=== PATIENT | male | born 1950 | race Caucasian/White ===

== ENCOUNTER 2020-12-19 17:51 | Observation (INO) | payer MEDICARE, SELFPAY ==
[2020-12-19 18:02] VITALS: BP 151/84; PULSE 95; RESP 18; TEMP 36.7; O2SAT 97; BMI 25.1
--- NOTE | 2020-12-19 18:33 | W.ED.ABDPA2 ---
HPI - Abdominal Pain General: Chief Complaint: Abdominal Pain Stated Complaint: LLQ ABD PAIN Time Seen by Provider: 12/19/20 18:21 History of Present Illness: HPI narrative: The patient is a 70-year-old male with no significant past medical history who comes to the ER complaining of left lower quadrant pain starting earlier today. He said he had an episode that was similar about a week ago but it eased up and went away on its own however this episode is not getting better prompting him to visit the ED. He has not seen a primary doctor in 10 years. Takes no medications. He admits to feeling nauseous and having diarrhea. No blood in stool. MD elicited complaint: abdominal pain Pertinent past history: none Location: LLQ Quality: cramping and sharp Radiation: none Associated Symptoms: Reports diarrhea and nausea; Denies hematochezia and vomiting Review of Systems General: Reports: 10 or more systems reviewed and unremarkable except in HPI and below Const: Denies: fatigue Eyes: Denies: change in vision, blurry vision or eye redness ENMT: Denies: throat pain, swelling of lips/tongue, ear or mastoid pain or nasal congestion Card: Denies: chest pain, palpitations, irregular heart rhythm, edema, dyspnea on exertion or orthopnea Resp: Denies: dyspnea, productive cough or non-productive cough GI: Reports: nausea and diarrhea; Denies: vomiting or hematochezia : Denies: flank pain, urinary frequency or urinary urgency Musc: Denies: neck pain, back pain, extremity pain, joint pain, joint redness, limited range of motion or muscle weakness Skin/Breast: Denies: rash, pruritus, erythema, skin pain or skin tenderness Neuro: Denies: headache(s), numbness in extremities, weakness in extremities, sensory changes, difficulty walking, dizziness, confusion or Slurred speech present Psych: Denies: anxiety or depression Endo: Denies: polyuria All/Imm: Denies: urticaria, throat swelling or tongue swelling Physical Exam Const: COMMON NORMALS: no acute distress, average body habitus, patient oriented x3, no limitations, healthy appearing, alert and well nourished GENERAL APPEARANCE: cooperative, comfortable, well kempt and well developed ORIENTATION/CONSCIOUSNESS: Yes awake, Yes oriented to person, Yes oriented to place and Yes oriented to time HENMT: COMMON NORMALS: normocephalic, external ears normal and Normal external nose present HEAD & SCALP: normal to inspection and normocephalic NOSE: Normal external nose present EXTERNAL EAR: Yes external ears normal MOUTH: Normal oral and palatal mucosa present THROAT: posterior oropharynx normal Eye: COMMON NORMALS: Equal, round and reactive pupils present and EOMs intact bilaterally GENERAL EYE: appearance normal, both eyes and all related structures PUPIL: Yes Equal, round and reactive pupils present Neck/C-Spine: COMMON NORMALS: full ROM, no lymphadenopathy, no meningeal signs and no JVD GENERAL: Yes normal visual inspection Lymph: LYMPHATIC: no lymphadenopathy noted Chest: COMMONS NORMALS: normal inspection of the chest and normal palpation of entire chest wall Resp: COMMON NORMALS: normal respiratory effort, No retractions, No use of accessory muscles, clear to auscultation bilaterally and percussion normal EFFORT & INSPECTION: Yes able to speak in complete sentences AUSCULTATION: clear to auscultation bilaterally PERCUSSION: percussion normal Cardio: COMMON NORMALS: no JVD, regular rate, regular rhythm, S1 normal heart sound present, S2 normal heart sound present and Peripheral pulses 2+ throughout RATE: regular rate RHYTHM: regular rhythm HEART SOUNDS: S1 normal heart sound present and S2 normal heart sound present PERIPHERAL PULSES: Peripheral pulses 2+ throughout GI: COMMON NORMALS: Normal to inspection, nondistended, normoactive bowel sounds present, Soft to palpation, non-tender and no masses INSPECTION: Yes normal to inspection PALPATION: Yes Soft to palpation OTHER: Mild left abdominal tenderness and left lower quadrant abdominal tenderness. No rebound tenderness. Belly soft. Bowel sounds normal. : COMMON NORMALS: Yes no CVA tenderness BLADDER/KIDNEY EXAM: Yes no CVA tenderness Back/Pelvis: COMMON NORMALS: no CVA tenderness, thoracic and lumbar spine normal to inspection, no thoracic nor lumbar tenderness and thoraco-lumbar ROM normal Extremity: COMMON NORMALS: normal to inspection, full ROM, capillary refill normal, no joint enlargement and no pedal edema GENERAL: Yes normal exam except as noted Neuro: COMMON NORMALS: patient oriented x3, CN's II-XII intact bilaterally, moves all extremities, no focal motor deficits, no sensory deficits noted and gait normal SENSORIUM/ORIENTATION: Yes alert, Yes oriented to person, Yes oriented to place and Yes oriented to time MENINGEAL SIGNS: Yes no meningeal signs Psych: COMMON NORMALS: mental status grossly normal, Normal thought process present, cooperative, normal affect and speech normal APPEARANCE: Yes well kempt ATTITUDE: Yes calm SPEECH: Yes normal speech THOUGHT PROCESS: Normal thought process present Skin: COMMON NORMALS: no rashes or lesions noted GENERAL SKIN EXAM: no rashes or lesions noted Course Vital Signs: Vital signs: Vital Signs Temperature 98.1 F 12/19/20 18:02 Pulse Rate 79 12/19/20 20:48 Respiratory Rate 18 12/19/20 20:48 Blood Pressure 143/70 12/19/20 20:48 Pulse Oximetry 98 12/19/20 20:48 MDM - Abdominal Pain MDM Narrative: Medical decision making narrative: The patient has a 6 mm proximal ureter stone which is likely causing his symptoms. He also says when he eats he has severe abdominal pain and he has not eaten since 7 AM this morning. The CT also shows a likely small bowel obstruction which could also be causing his abdominal pain. He will be kept observation for further monitoring of these conditions. Discussed with Dr. Villalpando who accepts for observation. Lab Data: Labs: Lab Results 12/19/20 12/19/20 12/19/20 Range/Units 18:49 18:49 18:49 WBC 8.2 (4.0-10.0) 10^3/ uL RBC 4.57 (4.1-5.3) 10^6/u L Hgb 14.1 (11.7-16.6) g/dL Hct 41.8 L (42.0-52.0) % MCV 91.5 (80-94) fL MCH 30.9 (28.0-34.0) pg MCHC 33.7 (30.0-36.0) g/dL RDW 11.9 L (12.1-15.1) % Plt Count 242 (130-400) 10^3/c mm MPV 10.1 (7.4-10.4) fL Neut % (Auto) 74.6 % Lymph % (Auto) 16.9 % [place] % (Auto) 6.9 % Eos % (Auto) 1.0 % Baso % (Auto) 0.4 % Neut # (Auto) 6.09 (1.8-7.7) 10^3/u L Lymph # (Auto) 1.4 (0.8-4.8) 10^3/u L [place] # (Auto) 0.6 (0.2-0.9) 10^3/u L Eos # (Auto) 0.1 (0.0-0.8) 10^3/u L Baso # (Auto) 0.0 (0.0-0.1) 10^3/u L Nucleated RBC % (a uto) 0 % Nucleated RBCs # 0.0 /100WBC Sodium 139 (136-145) mmol/L Potassium 4.0 (3.5-5.1) mmol/L Chloride 103 (98-107) mmol/L Carbon Dioxide 25 (22-29) mmol/L Anion Gap 15.0 (5-19) BUN 18 (8-23) mg/dL Creatinine 1.9 H (0.7-1.2) mg/dL GFR Calculation 35.2 L (90-130) mL/min Glucose 97 (65-115) mg/dL Calculated Osmolal ity 290 (285-295) mOsm/k g Lactate 1.0 (0.5-2.2) mmol/L Calcium 8.7 (8.5-10.5) mg/dL Total Bilirubin 0.6 (0.15-1.2) mg/dL AST 17 (0-40) U/L ALT 20 (0-41) U/L Alkaline Phosphata se 73 (40-130) IU/L Total Protein 7.8 (6.6-8.7) g/dL Albumin 3.9 (3.5-5.2) g/dL Globulin 3.9 (1.3-4.6) g/dL Lipase 20 (13-60) U/L Urine Color (Yellow) Urine Appearance (CLEAR) Urine pH (5-7) Ur Specific Gravit y (1.005-1.030) Urine Protein (Negative) Urine Glucose (UA) (Normal) Urine Ketones (Negative) Urine Blood (Negative) Urine Nitrate (Negative) Urine Bilirubin (Negative) Urine Urobilinogen (Negative) mg/dL Ur Leukocyte Ivory ase (Negative) Urine RBC (0-2) /hpf Urine WBC (0-5) /hpf Ur Squamous Epith Cells (0-5) /hpf Amorphous Sediment Urine Bacteria (NONE) /hpf Urine Mucus /hpf 12/19/ Range/Units 19:03 WBC (4.0-10.0) 10^3/ uL RBC (4.1-5.3) 10^6/u L Hgb (11.7-16.6) g/dL Hct (42.0-52.0) % MCV (80-94) fL MCH (28.0-34.0) pg MCHC (30.0-36.0) g/dL RDW (12.1-15.1) % Plt Count (130-400) 10^3/c mm MPV (7.4-10.4) fL Neut % (Auto) % Lymph % (Auto) % [place] % (Auto) % Eos % (Auto) % Baso % (Auto) % Neut # (Auto) (1.8-7.7) 10^3/u L Lymph # (Auto) (0.8-4.8) 10^3/u L [place] # (Auto) (0.2-0.9) 10^3/u L Eos # (Auto) (0.0-0.8) 10^3/u L Baso # (Auto) (0.0-0.1) 10^3/u L Nucleated RBC % (a uto) % Nucleated RBCs # /100WBC Sodium (136-145) mmol/L Potassium (3.5-5.1) mmol/L Chloride (98-107) mmol/L Carbon Dioxide (22-29) mmol/L Anion Gap (5-19) BUN (8-23) mg/dL Creatinine (0.7-1.2) mg/dL GFR Calculation (90-130) mL/min Glucose (65-115) mg/dL Calculated Osmolal ity (285-295) mOsm/k g Lactate (0.5-2.2) mmol/L Calcium (8.5-10.5) mg/dL Total Bilirubin (0.15-1.2) mg/dL AST (0-40) U/L ALT (0-41) U/L Alkaline Phosphata se (40-130) IU/L Total Protein (6.6-8.7) g/dL Albumin (3.5-5.2) g/dL Globulin (1.3-4.6) g/dL Lipase (13-60) U/L Urine Color Yellow (Yellow) Urine Appearance Clear (CLEAR) Urine pH 5 (5-7) Ur Specific Gravit y 1.015 (1.005-1.030) Urine Protein Neg (Negative) Urine Glucose (UA) Norm (Normal) Urine Ketones 1+ H (Negative) Urine Blood 3+ H (Negative) Urine Nitrate Negative (Negative) Urine Bilirubin Neg (Negative) Urine Urobilinogen Norm (Negative) mg/dL Ur Leukocyte Iv[place] ase Negative (Negative) Urine RBC 25-40 H (0-2) /hpf Urine WBC Rare (0-5) /hpf Ur Squamous Epith Cells None (0-5) /hpf Amorphous Sediment Not Reportable Urine Bacteria Trace (NONE) /hpf Urine Mucus 1+ /hpf Discharge Plan Discharge Patient Disposition: Placed in Observation Clinical Impression: Small bowel obstruction, Ureterolithiasis Coding Level of Care Code ED Co Founder And Chairman for Chg Fwd Exam Comprehensive
[2020-12-19] MEDS: ondansetron 2 mg/ML SDV 2 mL 4 MG IVP (18:47)
[2020-12-19] MEDS: sodium chloride 0.9% 1,000 ML 999 ML IV (18:48)
[2020-12-19 19:05] LABS: Basophils % 0.4 %; Eosinophils # 0.1 10^3/uL (0.0-0.8); Hematocrit 41.8 % (42.0-52.0); Hemoglobin 14.1 g/dL (11.7-16.6); Lymphocytes # 1.4 10^3/uL (0.8-4.8); Lymphocytes % 16.9 %; Mean Corpuscular HGB Conc 33.7 g/dL (30.0-36.0); Mean Corpuscular Hemoglobin 30.9 pg (28.0-34.0); Mean Corpuscular Volume 91.5 fL (80-94); Mean Platelet Volume 10.1 fL (7.4-10.4); Monocytes # 0.6 10^3/uL (0.2-0.9); Monocytes % 6.9 %; Neutrophils # 6.09 10^3/uL (1.8-7.7); Neutrophils % 74.6 %; Nucleated Red Blood Cells % 0 %; Platelet Count 242 10^3/cmm (130-400); Red Blood Count 4.57 10^6/uL (4.1-5.3); Red Cell Distribution Width 11.9 % (12.1-15.1); White Blood Count 8.2 10^3/uL (4.0-10.0)
[2020-12-19 19:12] LABS: Add Urine Microscopic? YES; Bilirubin Urine Neg (Negative); Blood Urine 3+ (Negative); Glucose Urine UA Norm (Normal); Ketones Urine 1+ (Negative); Leukocyte Esterase Urine Negative (Negative); Nitrate Urine Negative (Negative); Protein Urine Neg (Negative); Specific Gravity, Urine 1.015 (1.005-1.030); Urine Appearance Clear (CLEAR); Urine Color Yellow (Yellow); Urobilinogen Urine Norm (Negative); pH Urine 5 (5-7)
[2020-12-19 19:15] LABS: Bacteria Urine TRACE /hpf; Mucus Urine 1+ /hpf; RBC Urine 25-40 /hpf (0-2); WBC Urine RARE /hpf (0-5)
[2020-12-19 19:16] LABS: Add Urine Culture? Yes
[2020-12-19 19:31] LABS: Alanine Aminotransferase 20 U/L (0-41); Albumin Level 3.9 g/dL (3.5-5.2); Alkaline Phosphatase 73 IU/L (40-130); Aspartate Amino Transferase 17 U/L (0-40); Blood Urea Nitrogen 18 mg/dL (8-23); Calcium 8.7 mg/dL (8.5-10.5); Carbon Dioxide 25 mmol/L (22-29); Chloride 103 mmol/L (98-107); Globulin 3.9 g/dL (1.3-4.6); Glomerular Filtration Rate 35.2 mL/min (90-130); Glucose 97 mg/dL (65-115); Lipase 20 U/L (13-60); Osmolality Calculated 290 mOsm/kg (285-295); Sodium 139 mmol/L (136-145); Total Bilirubin 0.6 mg/dL (0.15-1.2); Total Protein 7.8 g/dL (6.6-8.7)
--- NOTE | 2020-12-19 19:56 | CTR_ITS ---
PROCEDURE INFORMATION: Exam: CT Abdomen And Pelvis With Contrast Exam date and time: 12/19/2020 8:22 PM Age: 70 years old Clinical indication: Abdominal pain; Localized; Left lower quadrant (llq); Patient HX: Llq abd pain w micro hematuria; Additional info: Llq abdominal pain/diarrhea. Microscopic hematuria TECHNIQUE: Imaging protocol: Computed tomography of the abdomen and pelvis with contrast. Radiation optimization: All CT scans at this facility use at least one of these dose optimization techniques: automated exposure control; mA and/or kV adjustment per patient size (includes targeted exams where dose is matched to clinical indication); or iterative reconstruction. Contrast material: VISI 320; Contrast volume: 95 ml; Contrast route: INTRAVENOUS (IV); COMPARISON: No relevant prior studies available. RADIATION DOSE METRICS: Total DLP (mGy-cm): 1479.83 FINDINGS: Lungs: Mild atelectasis versus fibrosis noted at the lung bases. Liver: Multiple water density liver lesions measuring up to 1.5 cm in diameter, likely representing simple cysts. No acute hepatic abnormality. Gallbladder and bile ducts: No calcified gallstones in the gallbladder. No gallbladder wall thickening. No pericholecystic fluid. No biliary dilatation. Pancreas: The pancreas is normal in appearance. No pancreatic duct dilatation. Spleen: The spleen is normal in size and appearance. Adrenal glands: The adrenal glands appear within normal limits. Kidneys and ureters: Mild left hydroureteronephrosis. Delayed excretion of contrast from the left kidney. There are 2 adjacent 3 mm obstructing calculi in the proximal left ureter. The distal left ureter is unremarkable. Findings are consistent with left obstructive uropathy. Simple appearing renal cysts measuring up to 2.5 cm. Stomach and bowel: No acute gastric abnormality demonstrated. There are mildly dilated loops of small bowel seen in the lower pelvis measuring up to 2.5 cm in diameter. The distal small bowel has an empty, decompressed appearance. This is suspicious for early or partial small bowel obstruction. Appendix: No evidence of appendicitis. Intraperitoneal space: No pneumoperitoneum. No significant fluid collection. Vasculature: Minimal atherosclerosis of the distal aorta and proximal common iliac arteries. No aneurysm. Lymph nodes: Shotty aortocaval lymph nodes are noted. No pathologically enlarged lymph nodes are demonstrated. Urinary bladder: Unremarkable as visualized. Reproductive: Mild enlargement of the prostate gland. Bones/joints: Advanced degenerative disc changes are noted throughout the lumbar spine. No acute osseous abnormality. Soft tissues: The abdominal wall demonstrates a 3.5 cm umbilical hernia, containing only fat. CT/CT abdomen pelvis w con* [id number] IMPRESSION: 1. Mild left hydroureteronephrosis. Delayed excretion of contrast from the left kidney. There are 2 adjacent 3 mm obstructing calculi in the proximal left ureter. The distal left ureter is unremarkable. Findings are consistent with left obstructive uropathy. 2. There are mildly dilated loops of small bowel seen in the lower pelvis measuring up to 2.5 cm in diameter. The distal small bowel has an empty, decompressed appearance. This is suspicious for early or partial small bowel obstruction. 3. The abdominal wall demonstrates a 3.5 cm umbilical hernia, containing only fat. 4. Mild enlargement of the prostate gland. COMMENTS: Consistent with the [employer]'s Incidental Findings Committee white paper (J Am Lauren Radiol 2018): Any incidental renal lesion less than 1 cm or classified as too small to characterize, or any incidental cystic renal lesion characterized as simple-appearing, is likely benign. No follow-up imaging is recommended for these lesions per consensus recommendations based on imaging criteria. Radiation Dose CTDIVOL = (mGy): DLP = 1479.83 (mGy-cm)
[2020-12-19] MEDS: iodixanol 320 mg/mL 100mL Btl IV (20:28)
[2020-12-19 20:48] VITALS: BP 143/70; PULSE 79; RESP 18; O2SAT 98
--- NOTE | 2020-12-19 23:29 | PM.HP ---
Providers/Chief Complaint Primary Care Provider: Jd Loera Jr, MD Chief Complaint: LLQ ABD PAIN History of Present Illness Francisco J Morgan is a 70 year old male who does not have significant past medical or surgical history presented today with chief complaint of left lower quadrant pain. Patient is stating that for last 7 to 8 days he has been experiencing epigastric and hypogastric region pain which would radiate to left lower quadrant especially after eating. Whenever he tries to eat he gets midepigastric discomfort which would last for 4 to 6 hours, if he eats 3 times a day his pain would last all day, he did not sprints any nausea or vomiting, on Monday he was feeling bloated and constipated he took a lot of laxatives and experienced loose stool today, he is denying fever, recent use of antibiotics, history of cancer, diabetes, stroke, CVA, ND or CHF. He has never smoked in his life, does not drink alcohol, he has never undergone screening colonoscopies, denies family history of GI/colon cancers. He is able to pass flatus, his pain is not severe as it was 7 days ago. Diagnosis in the ER revealed left hydroureteronephrosis, 2 obstructing calculi in proximal left ureter with no distal left ureter pathology, 2.5 cm dilated loops of small bowel with distal decompression suspicion for early/partial small bowel obstruction, umbilical hernia and BPH, Review of Systems Const: Reports: change in appetite, fatigue and malaise; Denies: fever(s), chills or body aches Eyes: Denies: change in vision ENMT: Denies: throat pain Card: Denies: chest pain Resp: Denies: dyspnea GI: Reports: abdominal pain, diarrhea and bloating; Denies: nausea or vomiting : Reports: flank pain Musc: Denies: neck pain Skin/Breast: Denies: rash Neuro: Denies: headache(s) Psych: Denies: anxiety Endo: Denies: polyuria Cj/Lymph: Denies: easy bruising All/Imm: Denies: urticaria Medications/Allergies Allergies Allergy/AdvReac Type Severity Reaction Status Date / Time No Known Allergies Allergy Verified 12/10/20 14:59 PFSH Acute PFSH: Medical History (Updated 12/19/20 @ 23:43 by Jade Villalpando MD) BPH (benign prostatic hyperplasia) Hypertension Surgical History (Updated 12/19/20 @ 23:30 by Jade Villalpando MD) Status post tonsillectomy Family History (Updated 12/19/20 @ 23:35 by Jade Villalpando MD) Denies family history of Diabetes CAD (coronary artery disease) Chronic kidney disease (CKD) Cancer Social History (Updated 12/19/20 @ 23:35 by Jade Villalpando MD) Smoking and tobacco status: never smoked Alcohol intake: never Substance/Drug Use: never Lives independently: Yes Housing: House Vitals/I&O/Wt Last Vital Signs Temp 98.1 F 12/19/20 18:02 Pulse 79 12/19/20 20:48 Resp 18 12/19/20 20:48 BP 143/70 12/19/20 20:48 Pulse Ox 98 12/19/20 20:48 Weight last 48 hrs Weight 81.647 kg Physical Exam Narrative: EXAM NARRATIVE: Very pleasant cooperative male was sitting comfortably in his bed when I entered the room Daughter was at the bedside Normal hemodynamics S1, S2 no murmur appreciated Bilateral breath sounds without adventitious rhonchi or crackles EOMI, PERRLA No neurological deficits Lower extremity no edema gangrene ulcer Abdomen soft, bloated, central obesity mild tenderness on deep palpation left lower quadrant area otherwise no signs of guarding rigidity or peritonitis Appropriate mood and affect No joint swelling or skin changes for cellulitis Data : 12/19/20 18:49 12/19/20 18:49 A&P Assessment and plan (1) Small bowel obstruction: Status: Acute (2) Ureterolithiasis: Status: Acute (3) CONCEPCIÓN (acute kidney injury): Status: Acute (4) Simple hepatic cyst: Status: Acute (5) Hematuria: Status: Acute Additional A&P Information Partial small bowel obstruction Patient had 1 episode of loose stool today after getting laxatives at home Is endorsing passing flatus Abdominal pain is not as severe as it was 7 days ago, I will give him mag citrate x1 and keep him on clear liquid diet and monitor overnight for any worsening of symptoms He will need outpatient colonoscopy in next few weeks, denying previous history of GI surgery, cancers, family history of GI/colon cancer Stomach is decompressed no need of nasogastric tube placement Patient denies previous history of peripheral vascular disease ND or CHF, postprandial pain could be a chronic mesenteric ischemic equivalent, he will need EGD and colonoscopy outpatient if that is negative he might benefit from a CTA abdomen pelvis Ureterolithiasis 2 adjacent 3 mm obstructing calculi, dimensions of stone do appear larger and then the report No active signs of pyelonephritis or UTI no signs of sepsis He will follow up with Dr. Beltre outpatient, no acute intervention needed as per ER physician discussion with Dr. Beltre I will start him on tamsulosin for BPH, bladder scan as needed Incidental finding of hepatic cysts, No biliary dilation: Normal liver enzymes, outpatient follow-up with PCP CONCEPCIÓN: No previous creatinine to compare Patient has not been eating much to prevent postprandial pain, clinically looks mildly dehydrated, would encourage p.o. fluids instead of IV at this point Monitor BMP Avoid nephrotoxic agent for hypertension we will add amlodipine Hypertension: Added amlodipine Umbilical hernia without strangulation or incarceration, Full code Full liquid diet DVT prophylaxis Heparin Attestations Medical Necessity Statement*: Anticipating discharge in less than 48 hours continued overnight monitoring for partial small obstruction left lower quadrant pain and urolithiasis, he also has CONCEPCIÓN Time Spent in Patient Care: (>than 50% of time spent in counselling and/or direct pt care on unit). 40mins Coding Level of Care Code Acute Junior Software Developer for Chg Fwd Diagnoses Small bowel obstruction K56.609 Ureterolithiasis N20.1 CONCEPCIÓN (acute kidney injury) N17.9 Simple hepatic cyst K76.89 Hematuria R31.9
[2020-12-20] VITALS: BP 149/82; PULSE 83; RESP 17; TEMP 36.6; O2SAT 97
[2020-12-20] MEDS: magnesium citrate Btl 296 mL 150 ML PO (00:20)
[2020-12-20] MEDS: heparin 5,000 unit/mL INJ 1 mL 5000 UNIT SUBCUT ×2 (00:26→10:18)
[2020-12-20 03:55] VITALS: BP 134/68; PULSE 58; RESP 17; TEMP 36.9; O2SAT 97
[2020-12-20 07:24] VITALS: BP 146/68; PULSE 60; RESP 17; TEMP 37; O2SAT 95
[2020-12-20 07:26] LABS: Anion Gap 11.7 (5-19); Blood Urea Nitrogen 16 mg/dL (8-23); Carbon Dioxide 26 mmol/L (22-29); Chloride 107 mmol/L (98-107); Glomerular Filtration Rate 42.9 mL/min (90-130); Glucose 95 mg/dL (65-115); Osmolality Calculated 291 mOsm/kg (285-295); Potassium 4.7 mmol/L (3.5-5.1); Sodium 140 mmol/L (136-145)
[2020-12-20] MEDS: sennosides-docusate Tablet 1 TAB PO (10:17)
[2020-12-20] MEDS: amlodipine 10 mg Tablet PO (10:17)
[2020-12-20] MEDS: tamsulosin 0.4 mg Capsule PO (10:18)
--- NOTE | 2020-12-20 10:39 | P.DS_ITS ---
Discharge Providers Date of Admission: 12/19/20 22:48 Date of Discharge: December 20, 2020 Attending Provider at Admission: Jade Villalpando MD Attending Provider at Discharge: Reyes Barr Primary Care Provider: Jd Loera Jr, MD Diagnoses at Discharge Discharge Diagnosis (1) Small bowel obstruction: Status: Acute (2) Ureterolithiasis: Status: Acute (3) CONCEPCIÓN (acute kidney injury): Status: Acute (4) Simple hepatic cyst: Status: Acute (5) Hematuria: Status: Acute Reason for Visit Reason for Visit: LLQ ABD PAIN Hospital Course Hospital Course Discharge diagnosis and problem list Small bowel obstruction. Clinically he is improving. He has been on full liquid diet and is tolerating it well. No nausea or vomiting. No abdominal pain. Had a bowel movement. No blood in the stool. The patient is eager to go home. He does not want to remain in the hospital. He states that he can do gradual advancement of his diet at home. He is instructed to come back to emergency room if he develops any worsening or new symptoms. He was also given a referral to follow-up with Dr. He for outpatient evaluation of small bowel obstruction, hernia, liver cyst. He might need also colonoscopy for regular health maintenance. Urolithiasis. His kidney function is improving. Again he does not want to remain in the hospital for monitoring. Referral is provided to see Dr. Beltre after discharge. Acute kidney injury. Could be acute on chronic. Could be due to mild urinary obstruction/obstructive uropathy. Currently improving creatinine. Outpatient monitoring of the renal function is needed. Prescription for repeat BMP is provided. He will need to follow-up with his primary care physician and with Dr. Beltre. He verbalized understanding and agreement. Hepatic cyst. Outpatient follow-up and monitoring. Discussed with the patient. He verbalized understanding and agreement. Hypertension. Started on amlodipine. His medications might need to be adjusted by the primary care team depending on his vital signs after discharge. Physical Exam Narrative: EXAM NARRATIVE: The patient is awake alert oriented. No acute distress. Mood and affect are appropriate. Responses are adequate. Skin is warm and dry. Moist mucous membranes Neck supple. No JVD Lungs clear to auscultation bilaterally Heart S1, S2, regular Abdomen soft, nontender, bowel sounds are present. No CVA tenderness bilaterally Extremities no edema cyanosis or calf tenderness bilaterally Discharge Data Data Completed and Pending: Completed Studies During Hospitalization Category Date Time Status CT abdomen pelvis w con* [id number] Stat Cat Scan 12/19/20 19:56 Completed Pending at discharge Category Date Time Status XR abdomen 1V* [id number] Routine Exams 12/21/20 06:00 Ordered Complete Blood Co unt w/Auto AM LABS Lab 12/21/20 04:00 Ordered Magnesium AM LABS Lab 12/21/20 04:00 Ordered Renal Function Pa lalito AM LABS Lab 12/21/20 04:00 Ordered Urine Culture Sta t Lab 12/19/20 19:03 Received Labs from last 24 hours 12/20/20 12/19/20 12/19/20 06:45 19:03 18:49 WBC RBC Hgb Hct MCV MCH MCHC RDW Plt Count MPV Neut % (Auto) Lymph % (Auto) Martin % (Auto) Eos % (Auto) Baso % (Auto) Neut # (Auto) Lymph # (Auto) Martin # (Auto) Eos # (Auto) Baso # (Auto) Nucleated RBC % (a uto) Nucleated RBCs # Sodium 140 Potassium 4.7 Chloride 107 Carbon Dioxide 26 Anion Gap 11.7 BUN 16 Creatinine 1.6 H GFR Calculation 42.9 L Glucose 95 Calculated Osmolal ity 291 Lactate 1.0 Calcium 9.0 Total Bilirubin AST ALT Alkaline Phosphata se Total Protein Albumin Globulin Lipase Urine Color Yellow Urine Appearance Clear Urine pH 5 Ur Specific Gravit y 1.015 Urine Protein Neg Urine Glucose (UA) Norm Urine Ketones 1+ H Urine Blood 3+ H Urine Nitrate Negative Urine Bilirubin Neg Urine Urobilinogen Norm Ur Leukocyte Ivory ase Negative Urine RBC 25-40 H Urine WBC Rare Ur Squamous Epith Cells None Amorphous Sediment Not Reportable Urine Bacteria Trace Urine Mucus 1+ 12/19/20 12/19/20 18:49 18:49 WBC 8.2 RBC 4.57 Hgb 14.1 Hct 41.8 L MCV 91.5 MCH 30.9 MCHC 33.7 RDW 11.9 L Plt Count 242 MPV 10.1 Neut % (Auto) 74.6 Lymph % (Auto) 16.9 Martin % (Auto) 6.9 Eos % (Auto) 1.0 Baso % (Auto) 0.4 Neut # (Auto) 6.09 Lymph # (Auto) 1.4 Martin # (Auto) 0.6 Eos # (Auto) 0.1 Baso # (Auto) 0.0 Nucleated RBC % (a uto) 0 Nucleated RBCs # 0.0 Sodium 139 Potassium 4.0 Chloride 103 Carbon Dioxide 25 Anion Gap 15.0 BUN 18 Creatinine 1.9 H GFR Calculation 35.2 L Glucose 97 Calculated Osmolal ity 290 Lactate Calcium 8.7 Total Bilirubin 0.6 AST 17 ALT 20 Alkaline Phosphata se 73 Total Protein 7.8 Albumin 3.9 Globulin 3.9 Lipase 20 Urine Color Urine Appearance Urine pH Ur Specific Gravit y Urine Protein Urine Glucose (UA) Urine Ketones Urine Blood Urine Nitrate Urine Bilirubin Urine Urobilinogen Ur Leukocyte Ivory ase Urine RBC Urine WBC Ur Squamous Epith Cells Amorphous Sediment Urine Bacteria Urine Mucus Vitals: Last Vital Signs Temp 98.6 F 12/20/20 07:24 Pulse 60 12/20/20 07:24 Resp 17 12/20/20 07:24 BP 146/68 12/20/20 07:24 Pulse Ox 95 12/20/20 07:24 Discharge Plan Discharge Patient Disposition: Home Condition: Stable Prescriptions: New Stool Softener-Laxative 8.6-50 mg Tablet 1 tab PO DAILY Qty: 30 RF: 0 tamsulosin 0.4 mg Capsule 0.4 mg PO DAILY Qty: 30 RF: 0 amlodipine 10 mg Tablet 10 mg PO DAILY Qty: 30 RF: 0 Discharge Orders: Discharge Order (Routine); Ordered 12/20/20 Ordered By: Reyes Barr Other Ambulatory Orders: Basic Metabolic Panel (Routine) Timeframe: 1 Week Facility: [facility] - Location: Lab - Main Lab Ordered By: Reyes Barr Referrals: Rolf Beltre MD [Physician] - 1-3 days (Please call the office first thing Monday morning at [phone] to schedule an appointment for 1 to 3 days.) Orion He MD [Physician] - 1 week (Please call the ofice first thing Monday morning at [phone] to schedule an appointment in 1 week.) Jd Loera Jr, MD [Primary Care Provider] - 4-7 days (Please call the office first thing Monday morning at [phone] to schedule an appointment in 4 to 7 days.) Discharge Diet: Advance as tolerated Discharge Activity: Resume usual activity Patient Instructions: Laxative, Stool Softeners (By mouth), Amlodipine (By mouth), Tamsulosin (By mouth), Acute Kidney Injury (DC), Kidney Stones (DC), Bowel Obstruction (DC) Activity Restrictions/Additional Instructions: Please come back to emergency room if you develop any increasing abdominal pain, back pain, abdominal distention, fever or chills, nausea or vomiting, diarrhea or constipation, difficulties with urination, blood in the urine, confusion, dizziness or lightheadedness, headache, or any other new complaints. Discharge Attestations Time Spent in Discharge Care*: less than 30 min Quality Metrics Clinical Quality Measures During this hospital stay, did patient experience: None Coding Level of Care Code Acute Chg FW DC note Diagnoses Small bowel obstruction K56.609 Ureterolithiasis N20.1 CONCEPCIÓN (acute kidney injury) N17.9 Simple hepatic cyst K76.89 Hematuria R31.9
[2020-12-20 11:21] VITALS: BP 133/76; PULSE 73; RESP 17; TEMP 36.6; O2SAT 98
--- NOTE | 2020-12-20 12:58 | PC.NURSE ---
at 1200 patient given discharge instructions and verbalized understanding of instructions. patient walked to private vehicle.
[2020-12-20 12:59] VITALS: BP 133/76; PULSE 73; RESP 17; TEMP 36.6; O2SAT 98
== END 2020-12-20 13:00 | disposition home or self-care (01) ==
LOC: ER 23:13 → MEDSURG 23:30
PROVIDERS: Admitting Provider Internal Medicine; Emergency Provider Family Medicine; PCP Family Medicine; Visit Provider Internal Medicine
DX: K56.609 Unspecified intestinal obstruction, unspecified as to partial versus complete obstruction (principal); N20.1 Calculus of ureter; N17.9 Acute kidney failure, unspecified; K76.89 Other specified diseases of liver; R31.9 Hematuria, unspecified; N40.0 Benign prostatic hyperplasia without lower urinary tract symptoms; I10 Essential (primary) hypertension
CPT/HCPCS: 36415; 74177; 80048; 80053; 81001; 83605; 83690; 85025; 87086; 96361; 96372; 96374; 99285; G0378; J1644; J2405; J7030; Q9967

== ENCOUNTER 2020-12-21 09:58 | Outpatient (CLI) | payer MEDICARE, SELFPAY ==
--- NOTE | 2020-12-21 09:30 | XRR_ITS ---
PROCEDURE INFORMATION: Exam: XR Abdomen Exam date and time: 12/21/2020 10:17 AM Age: 70 years old Clinical indication: Condition or disease; Kidney or ureter condition; Calculus (stone) in ureter; Additional info: Stones TECHNIQUE: Imaging protocol: XR of the abdomen. Views: Frontal supine view of the abdomen. 1 View. COMPARISON: CT abdomen pelvis w con* [id number] 12/19/2020 8:41 PM FINDINGS: Gastrointestinal tract: Normal. No bowel dilation. Organs: There is a 7.5 mm calculus projecting on the left ureter at the L3-L4 level. This is unchanged since previous CT scan. Bones/joints: Unremarkable. XR/XR KUB [id number] IMPRESSION: No significant change in the position of the left ureteral calculus.
== END 2020-12-21 09:59 | disposition home or self-care (01) ==
LOC: RAD 10:05
PROVIDERS: PCP Family Medicine; Visit Provider Urology
DX: N20.1 Calculus of ureter (principal)
CPT/HCPCS: 74018; 81003

== ENCOUNTER 2020-12-28 07:37 | Outpatient (CLI) | payer MEDICARE, SELFPAY ==
--- NOTE | 2020-12-28 07:45 | XRR_ITS ---
PROCEDURE INFORMATION: Exam: XR Abdomen Exam date and time: 12/28/2020 7:46 AM Age: 70 years old Clinical indication: Condition or disease; Kidney or ureter condition; Calculus (stone) in ureter; Additional info: Ureteral stone TECHNIQUE: Imaging protocol: XR of the abdomen. Views: Frontal supine view of the abdomen. 1 View. COMPARISON: CR XR KUB [id number] 12/21/2020 10:14 AM FINDINGS: Gastrointestinal tract: Mild bowel dilatation and prominent stool, in a pattern suggesting constipation. Organs: Partial obscuration of the renal fossa by overlying bowel gas and stool. Residual 8 mm nodular calcification overlying the left paraspinous region at the L3-L4 level, suggesting ureteral calculus. Bones/joints: Degenerative change and mild scoliosis. Poorly defined 11 mm ovoid sclerotic density overlying the right ilium. XR/XR KUB [id number] IMPRESSION: Residual 8 mm nodular calcification overlying the left paraspinous region at the L3-L4 level, suggesting ureteral calculus.
== END 2020-12-28 07:38 | disposition home or self-care (01) ==
LOC: RAD 07:40
PROVIDERS: PCP Family Medicine; Visit Provider Urology
DX: N20.1 Calculus of ureter (principal)
CPT/HCPCS: 74018; 81003

== ENCOUNTER 2021-01-07 07:05 | Outpatient (CLI) | payer MEDICARE, SELFPAY ==
--- NOTE | 2021-01-07 07:00 | XR_ITS ---
WS: [id number] KUB, AP view, 01/07/2021 Clinical Data: URETERAL STONE Comparison: KUB, 12/28/2020. Findings: No abnormal intraabdominal masses are seen. There is no dilatated small bowel or evidence of obstruct ion. There is a 0.8 cm calcification to the left of the L4 vertebral body overlying the transverse process which may be a ureteral calculus. There is colon gas and fecal material overlying both kidneys obscu ring detail. XR/XR KUB [id number] Impression: 0.8 cm calcification which may be in the left mid ureter.
== END 2021-01-07 07:06 | disposition home or self-care (01) ==
LOC: RAD 07:06
PROVIDERS: PCP Nurse Practitioner; Visit Provider Urology
DX: N20.1 Calculus of ureter (principal)
CPT/HCPCS: 74018; 81003; 87635

== ENCOUNTER 2021-01-11 11:56 | Day surgery (SDC) | payer MEDICARE, SELFPAY ==
[2021-01-08 15:01] VITALS: BMI 26.6
[2021-01-11] VITALS (7 sets, daily range): BP systolic 147–156; BP diastolic 70–89; PULSE 63–98; RESP 18; TEMP 36.1–36.8; O2SAT 80–100
--- NOTE | 2021-01-11 12:16 | XR_ITS ---
WS: [id number] Exam: XR KUB [id number] Date/Time of Exam: 01/11/2021 12:19 PM Reason For Exam: Preop ESWL Comparison with the latest exam 01/07/2021. No bowel obstruction or free air. 8 mm calcification again noted along the left lumbar paraspinal reg ion at about the level of the L3-4 disc space. This is thought to represent a left ureteral renal lit hiasis. No significant change. Visualized organ margins are intact. Bony elements are otherwise unrem arkable. XR/XR KUB [id number] IMPRESSION: 1. Left paraspinal lumbar calcification showing little change since previous st udy. This may represent a calculus in the mid left ureter. 2. No acute abdominal finding noted otherwise.
--- NOTE | 2021-01-11 12:27 | W.PM.OPSUD ---
Surgery/Procedure H&P Update DATE OF PROCEDURE: January 11, 2021 DATE H&P PERFORMED: 01/04/21 PREOP DIAGNOSIS: screening colonoscopy PLANNED PROCEDURE: Operation Date: 01/11/21 13:30 Proposed Procedures p Cystoscopy 30476 13291 n20.1 39950 z12.11(Not Applicable) - Rolf Beltre MD s Ureteral Stent Placement(Left) - Rolf Beltre MD s ESWL Extracorporeal Shockwave Lithotrispy(Not Applicable) - Rolf Beltre MD s Colonoscopy 24435 z12.11(Not Applicable) - Orion He MD
[2021-01-11] MEDS: sodium chloride 0.9% 1,000 ML 30 ML IV (13:02)
--- NOTE | 2021-01-11 13:20 | ANES.PREANE2 ---
Pre-Anesthetic Assessment Pre-Anesthetic Assessment: Height/Weight: Height 1.75 m Weight 81.647 kg Temp Pulse Resp BP Pulse Ox 98.2 F 98 18 156/84 80 L 01/11/21 12:39 01/11/21 12:39 01/11/21 12:39 01/11/21 12:39 01/11/21 12:39 Preop Diagnosis: screening colonoscopy Proposed Procedure: Operation Date: 01/11/21 13:30 Proposed Procedures p Cystoscopy 20271 07440 n20.1 20746 z12.11(Not Applicable) - Rolf Beltre MD s Ureteral Stent Placement(Left) - Rolf Beltre MD s ESWL Extracorporeal Shockwave Lithotrispy(Not Applicable) - Rolf Beltre MD s Colonoscopy 28701 z12.11(Not Applicable) - Orion He MD Familial anesthetic complications: none Was Beta Sonia taken within 24 hours: N/A Was Clonidine taken within 24 hours: N/A Last intake: Intake Last Liquid Date 01/10/21 Last Liquid Time 23:00 Last Solid Date 01/09/21 Last Solid Time 19:00 Last Intake: 23:00 Social: Social History: No alcohol and No tobacco Exam: Pre-Anes Outpt Exam: alert, oriented x 3, clear to auscultation bilaterally and regular rate & rhythm Airway: Submandibular: WNL Cervical ROM: WNL MP: 2 Dentition: Full Pulmonary: Pulmonary: None reported CV/HEM: CV/HEM: None reported : : None reported Hepatic: Hepatic: None reported GI: GI: None reported Metabolic: Metabolic: None reported Musc/skel: Musc/skel: Lower Back Pain Neuropsych: Neuropsych: None reported Anesthetic Plan: ASA status: 2 Anesthesia: General Risk of > 500 ml blood loss (7ml/kg in children): No PFSH Anesthesia PFSH: Medical History BPH (benign prostatic hyperplasia) Hypertension Umbilical hernia Surgical History Status post tonsillectomy Family History Father , at 62 Stroke Mother Healthy adult Denies family history of Diabetes CAD (coronary artery disease) Chronic kidney disease (CKD) Anesthesia complication Bleeding disorder Cancer Social History Smoking and tobacco status: never smoked Alcohol intake: never Lives independently: Yes Housing: House Marital status: / Current occupational status: retired History of recent travel: No Data Anesthesia Cardiac Studies: No Data to Display
--- NOTE | 2021-01-11 13:22 | W.PM.OPSUD ---
Surgery/Procedure H&P Update DATE OF PROCEDURE: January 11, 2021 DATE H&P PERFORMED: 01/07/21 H&P UPDATE INFORMATION: I have reviewed H&P completed within last 30 days, I have examined patient prior to procedure, No changes to prior documentation and H&P is in [facility] EMR on date indicated CHANGES TO PREVIOUS DOCUMENTATION: KUB today shows the stone in the same position. Reviewed the procedure again. We will plan on ESWL 1st followed by stenting. PREOP DIAGNOSIS: screening colonoscopy PLANNED PROCEDURE: Operation Date: 01/11/21 13:30 Proposed Procedures p Cystoscopy 48833 38328 n20.1 23673 z12.11(Not Applicable) - Rolf Beltre MD s Ureteral Stent Placement(Left) - Rolf Beltre MD s ESWL Extracorporeal Shockwave Lithotrispy(Not Applicable) - Rolf Beltre MD s Colonoscopy 04257 z12.11(Not Applicable) - Orion He MD
[2021-01-11] MEDS: levofloxacin-dextrose 5 % 500 MG/100 ML PREMIX 100 MG IV (13:30)
--- NOTE | 2021-01-11 14:25 | P.OP_ITS ---
Operative Report Date of procedure: January 11, 2021 Pre-op Diagnosis: Refractory left mid ureteral stone Post-op diagnosis: same Post-op Findings: Excellent change with ESWL. Stent left indwelling. Procedure Done: 1. Extracorporeal shockwave lithotripsy to left mid ureteral stone 2. Cystoscopy with left ureteral stent placement Pathology: none sent Surgeon: Alexsander Anesthesia: General Estimated blood loss: Minimal Urine output: Not measured Complications: None Findings: Stone easily identified and fragmented with ESWL. 7 Serbian by 28 cm double- pigtail stent without string left indwelling at the completion of the procedure Condition: stable Disposition: PACU Brief History: Mr. Morgan is a very pleasant 70-year-old white male who was discovered coincidentally to have an obstructing left mid ureteral stone. The work-up was done for evidence of small bowel obstruction which resolved spontaneously. He was followed for several weeks with the hopes of spontaneous passage of the stone but it failed to progress. At time of diagnosis he was already showing significant obstructive changes with decreased perfusion of the kidney and dilation of the collecting system. Ultimately we elected to proceed with treatment and after detailed discussion of the options he chose ESWL with stent. Procedure: After routine preoperative evaluation examination and obtaining of informed consent he was taken to the operating suite on 01/11/2021 where general anesthesia was administered without difficulty after appropriate timeout was performed, SCDs confirmed to be functioning, preoperative antibiotics administered, beta-marcelino protocol confirmed. Positioned on the Dornier unit such that the stone was located at the focal point utilizing biplanar fluoroscopy with the shock head positioned posteriorly. The stone was easy to focus on. Shockwave was initiated intensity of 1 advanced an intensity of 4. Rate of 70. After about 500 shocks the stone was starting to demonstrate significant change by spreading. The patient was in Trendelenburg for the entire procedure which facilitated some spreading of the stones fragments just proximal to the original location. A total of 2500 shocks were administered to the stone with excellent change. By the completion of the procedure I could no longer see any obvious large fragments. He was then repositioned in dorsal lithotomy position paying careful attention to avoiding pressure points. 21 Serbian cystoscope with 30 degree lens was introduced into the urethra meatus and advanced into the bladder under videoscopy. Left ureteral orifice was easily identified and a flexible tip guidewire was advanced up the left ureter bypassing the area of the stone easily with no restriction. Stent curled in the area of the upper pole calyx and a 7 Serbian by 28 cm double-pigtail stent was advanced over the guidewire through the cystoscope into appropriate position as confirmed via fluoroscopy and cystosco py. The bladder was drained. Procedure was completed. The patient was then turned over to Dr. He who was scheduled to perform a colonoscopy. PLANS: 1. Anticipate discharge from outpatient surgery today 2. Follow-up in roughly 1 week for KUB and possible cystoscopy stent removal.
--- NOTE | 2021-01-11 15:07 | SUR.PHASEI ---
PT AWAKES EASILY ALERT ORIENTED, PT ON RA TRIAL PT DENIES PAIN AND NAUSEA, WARM BLANKETS X 3 TO PT
== END 2021-01-11 14:45 | disposition home or self-care (01) ==
PROVIDERS: Surgery; PCP Nurse Practitioner; Visit Provider Urology
PROC: 0TJB8ZZ Inspection of Bladder, Via Natural or Artificial Opening Endoscopic (ICD-10-PCS; CPT 52000; principal; 2021-01-11 13:10)
PROC: (CPT 50605; 2021-01-11 13:10)
PROC: (CPT 50590; 2021-01-11 13:10)
PROC: 0DJD8ZZ Inspection of Lower Intestinal Tract, Via Natural or Artificial Opening Endoscopic (ICD-10-PCS; CPT 45378; 2021-01-11 13:10)
DX: E11.621 Type 2 diabetes mellitus with foot ulcer (principal); N20.1 Calculus of ureter; N40.0 Benign prostatic hyperplasia without lower urinary tract symptoms; I10 Essential (primary) hypertension
CPT/HCPCS: 50590; 52332; 74018; 88305; C2625; J1100; J1956; J2405; J2704; J2710; J3010; J3490; J7030

== ENCOUNTER 2021-01-19 07:04 | Outpatient (CLI) | payer MEDICARE, SELFPAY ==
--- NOTE | 2021-01-19 07:00 | XRR_ITS ---
PROCEDURE INFORMATION: Exam: XR Abdomen Exam date and time: 01/19/2021 7:19 AM Age: 70 years old Clinical indication: Condition or disease; Kidney or ureter condition; Calculus (stone) in kidney; Additional info: Renal stone TECHNIQUE: Imaging protocol: XR of the abdomen. Views: Frontal supine view of the abdomen. 1 View. COMPARISON: CR XR KUB [id number] 01/11/2021 12:30 PM FINDINGS: Tubes, catheters and devices: Interval placement of a left double-J stent with the proximal pigtail in the left kidney and the distal pigtail in the urinary bladder. Gastrointestinal tract: No dilated gas-filled loops of bowel. Moderate amount of stool in the proximal colon. Organs: Calcific fragments in the distal left ureter along the double-J stent potentially representing steinstrasse after lithotripsy versus distal migration of pre-existing renal and/or ureteral calculi. Bones/joints: Multilevel disc degeneration and facet arthropathy in the lumbar spine. Bone island in the right ilium. XR/XR KUB [id number] IMPRESSION: Distal left ureteral calculi or stone fragments.
== END 2021-01-19 07:05 | disposition home or self-care (01) ==
LOC: RAD 07:06
PROVIDERS: PCP Nurse Practitioner; Visit Provider Urology
DX: N20.0 Calculus of kidney (principal); N20.1 Calculus of ureter
CPT/HCPCS: 74018; 81003; 82365; 88300; 88305

== ENCOUNTER 2021-07-22 07:03 | Outpatient (CLI) | payer MEDICARE, SELFPAY ==
--- NOTE | 2021-07-22 07:15 | XR_ITS ---
WS: [id number] KUB, AP view, 07/22/2021 Clinical Data: URETEROLITHIASIS Comparison: KUB, 01/19/2021 Findings: No abnormal intraabdominal masses or calcifications are seen. There is no dilatated small bowel or ev idence of obstruction. The left ureteral stent has been removed. There is a large amount of fecal material throughout the co aure. Degenerative changes of the lumbar vertebra is seen. XR/XR KUB [id number] Impression: Negative KUB.
== END 2021-07-22 07:04 | disposition home or self-care (01) ==
LOC: RAD 07:04
PROVIDERS: PCP Nurse Practitioner; Visit Provider Urology
DX: N20.1 Calculus of ureter (principal)
CPT/HCPCS: 74018; 81003

== ENCOUNTER 2022-07-19 07:12 | Outpatient (CLI) | payer MEDICARE, SELFPAY ==
--- NOTE | 2022-07-19 07:22 | XR_ITS ---
WS: [id number] KUB, AP view, 07/19/2022 Clinical Data: Ureterolithiasis Comparison: KUB, 07/22/2021 Findings: No abnormal intraabdominal masses or calcifications are seen. There is no dilatated small bowel or ev idence of obstruction. There is a large amount of fecal material throughout the colon. There is degenerative change of the l ower thoracic and all the lumbar vertebral bodies. XR/XR KUB [id number] Impression: Negative KUB.
== END 2022-07-19 07:13 | disposition home or self-care (01) ==
LOC: RAD 07:13
PROVIDERS: PCP Nurse Practitioner; Visit Provider Urology
DX: N20.9 Urinary calculus, unspecified (principal); N20.2 Calculus of kidney with calculus of ureter
CPT/HCPCS: 74018; 81003; 99213

== ENCOUNTER 2024-05-01 09:06 | Emergency (ER) | payer MEDICARE, SELFPAY ==
[2024-05-01 09:12] VITALS: BP 127/64; PULSE 83; RESP 18; TEMP 38.2; O2SAT 96
--- NOTE | 2024-05-01 09:22 | ED_ITS ---
HPI - General Adult 2 General: Chief complaint: General Medical Stated complaint: Pain in lower stomach and leg, dizzy, fever Time Seen by Provider: 05/01/24 09:18 History of Present Illness: 73-year-old male presents to the emergen cy room complaining of fever up to 103 at time is low-grade fever on arrival here fevers been intermittent. Additionally has been having groin pain. Right lower abdominal pain radiating into his right groin. No dysuria urgency or frequency have a history of nephrolithiasis but states this does not feel like the nephrolithiasis he has had in the past. Denies any nausea vomiting or diarrhea denies any hematochezia melena hematemesis coffee-ground emesis. No chest pain slight cough nonproductive. Associated symptoms: Reports nausea; Deny chest pain, dyspnea or rash Related Data Home Medications Medication Instructions Recorded Confirmed multivitamin 1 tab PO DAILY 07/22/21 05/01/24 Previous Rx's Medication Instructions Recorded hydrocodone 5 mg-acetaminophen 325 1 tab PO Q6H PRN pain #15 tabs 05/01/24 mg tablet levofloxacin 750 mg tablet 750 mg PO DAILY 7 days #7 tabs 05/01/24 promethazine 25 mg tablet 25 mg PO Q6H PRN nausea and 05/01/24 vomiting #20 tabs Allergies Allergy/AdvReac Type Severity Reaction Status Date / Time No Known Allergies Allergy Verified 07/19/22 07:44 Review of Systems 2 Const: Reports: fever(s) and chills Card: Denies: chest pain Resp: Denies: dyspnea GI: Reports: abdominal pain (Right lower quadrant to the groin) and nausea : Denies: dysuria, urinary frequency or urinary urgency Musc: Denies: neck pain or back pain Skin/Breast: Denies: rash PFSH ED 2 PFSH: Medical History Urolithiasis Umbilical hernia BPH (benign prostatic hyperplasia) Hypertension Surgical History Status post tonsillectomy Family History Father , at 62 Stroke Mother Healthy adult Denies family history of Diabetes CAD (coronary artery disease) Chronic kidney disease (CKD) Anesthesia complication Bleeding disorder Cancer Social History Smoking and tobacco/nicotine status: never used tobacco/nicotine Alcohol intake: never Substance/Drug Use: never Lives independently: Yes Housing: House Marital status: / Current occupational status: retired Physical Exam 2 Const: COMMON NORMALS: no acute distress GENERAL APPEARANCE: cooperative and comfortable ORIENTATION/CONSCIOUSNESS: Yes awake, Yes oriented to person, Yes oriented to place and Yes oriented to time HENMT: COMMON NORMALS: normocephalic, atraumatic and hearing grossly normal bilaterally HEAD & SCALP: normocephalic and atraumatic Resp: COMMON NORMALS: normal respiratory effort, No retractions, No use of accessory muscles and clear to auscultation bilaterally AUSCULTATION: clear to auscultation bilaterally Cardio: COMMON NORMALS: regular rate, regular rhythm and No murmurs present (Cardio) RATE: regular rate RHYTHM: regular rhythm GI: AUSCULTATION: Yes normoactive bowel sounds PALPATION: Yes Tenderness to palpation present (GI) (Right lower quadrant) and No Guarding due to palpation present (GI) Extremity: COMMON NORMALS: normal to inspection, capillary refill normal, no clubbing, cyanosis or edema, no calf tenderness and no pedal edema Neuro: SENSORIUM/ORIENTATION: Yes oriented to person, Yes oriented to place and Yes oriented to time Skin: COMMON NORMALS: no rashes or lesions noted GENERAL SKIN EXAM: no rashes or lesions noted Course 2 Vital Signs: Vital signs: Vital Signs Temperature 100.9 F H 05/01/24 13:53 Pulse Rate 74 05/01/24 13:53 Respiratory Rate 18 05/01/24 13:53 Blood Pressure 135/64 05/01/24 13:53 Pulse Oximetry 94 05/01/24 13:53 Oxygen Delivery Me thod Room Air 05/01/24 12:13 [facility] - General Adult Medical Decision Making Extensive workup patient has several different things going on. First he has a reducible right inguinal hernia with sections of bowel within the hernia component. This was easily reducible at the bedside and did relieve some of his discomfort. I suspect the right lower quadrant and groin pain he is having are due to this hernia. It is likely will recur I think his pain is coming from on the hernia is becoming impinged upon more because his physical discomfort is intermittently developing ileus to partial obstruction. He has no signs of actual obstruction on the CT and is improved after we reduced it. Will refer him to general surgery. He has a left inguinal hernia as well but only obtains omentum he also has an umbilical hernia. He is advised that if the hernia recurs and he is worsening pain develops vomiting he needs to return. Secondly patient does have WHO area no signs of cystitis on the CT there is significant nodularity of his prostate suspect the hematuria is from this source. He does not have any urolithiasis. Reviewed specifically with Dr. Craig. He does not have any leukocyte esterase or nitrates and do not believe he has an infection at this point this should be followed up as an outpatient with urology. Third issues elevated liver enzymes. On the CT he does have fatty liver gallbladder itself looks normal reviewed with Dr. Craig who read his abdominal CT. There is no sign of obstruction either on his labs, or on imaging. His T. bili and his alk phos are normal his lipase was normal he does not have any right upper quadrant pain. Suspect the elevated transaminases are related to the fatty liver he should have this followed up as an outpatient as well. Fourth issue patient did have a fever when he first came in as he has no leukocytosis no other signs of infection. In reviewing the CT of his abdomen noted some questionable infiltrate even possibly a small effusion the base of the lungs with the CT of the abdomen clot. Chest x-ray was done shows a left lower lobe pneumonia infiltrate. I think that is the cause of his fever. He is still running a little bit of a fever now. His urine has been cultured and done blood cultures as well as start him on Levaquin 750 p.o. daily. If he has worsening of any of these conditions he should return to his primary care doctor or to the emergency room. Lab Data 05/01/24 09:38 05/01/24 09:38 Radiology Impressions Abdomen/Pelvis CT 05/01/24 10:15 IMPRESSION: 1. Ileal small bowel loops extend into a wid[place]outh RIGHT inguinal hernia with a few air-fluid levels. No evidence of high-grade obstruction. Slight induration about the hernia sac. A few enlarged RIGHT inguinal lymph nodes in this area likely inflammatory. 2. Fat-containing LEFT inguinal hernia with slight herniation of colon along the proximal mouth of the hernia with no evidence of entrapment. 3. Markedly enlarged heterogeneously enhancing nodular prostate measuring 4.2 x 6.1 cm suspicious for neoplasia/hyperplasia. Recommend correlation PSA. 4. Small bilateral pleural pleural effusions with bibasilar atelectasis. 5. Shotty normal-sized periaortic and retroperitoneal lymph nodes also may be inflammatory. 6. [place] fat-containing umbilical hernia with herniated omental fat. No herniated bowel. 7. No evidence of acute appendicitis. Notified Chase Bae DO at 05/01/2024 11:11 AM. Chest X-Ray 05/01/24 12:56 Impression: Left basilar atelectasis or infiltrate is suspected. Laboratory Results WBC 5.72 10^3/uL (3.29-11.43) 05/01/24 09:38 RBC 4.41 10^6/uL (3.85-5.65) 05/01/24 09:38 Hgb 13.60 g/dL (11.27-16.99) 05/01/24 09:38 Hct 40.0 % (37-53) 05/01/24 09:38 MCV 90.7 fl (82-101) 05/01/24 09:38 MCH 30.8 pg (27-33) 05/01/24 09:38 MCHC 34.0 g/dL (30-55) 05/01/24 09:38 RDW 12.8 % (12.1-15.1) 05/01/24 09:38 Plt Count 160 10^3/cmm (157-399) 05/01/24 09:38 MPV 10.0 fL (7.4-10.4) 05/01/24 09:38 Neut % (Auto) 85.2 % 05/01/24 09:38 Lymph % (Auto) 7.9 % 05/01/24 09:38 [place] % (Auto) 5.4 % 05/01/24 09:38 Eos % (Auto) 0.0 % 05/01/24 09:38 Baso % (Auto) 0.3 % 05/01/24 09:38 Neut # (Auto) 4.87 10^3/uL (1.8-7.7) 05/01/24 09:38 Lymph # (Auto) 0.5 10^3/uL (0.8-4.8) L 05/01/24 09:38 [place] # (Auto) 0.3 10^3/uL (0.2-0.9) 05/01/24 09:38 Eos # (Auto) 0.0 10^3/uL (0.0-0.8) 05/01/24 09:38 Baso # (Auto) 0.0 10^3/uL (0.0-0.1) 05/01/24 09:38 Nucleated RBC % (auto) 0 % 05/01/24 09:38 Nucleated RBCs # 0.0 /100WBC 05/01/24 09:38 Sodium 134 mmol/L (136-145) L 05/01/24 09:38 Potassium 4.3 mmol/L (3.5-5.1) 05/01/24 09:38 Chloride 100 mmol/L (98-107) 05/01/24 09:38 Carbon Dioxide 22 mmol/L (22-29) 05/01/24 09:38 Anion Gap 16.3 (5-19) 05/01/24 09:38 BUN 12 mg/dL (8-23) 05/01/24 09:38 Creatinine 1.1 mg/dL (0.7-1.2) 05/01/24 09:38 GFR Calculation Not Reportable 05/01/24 09:38 Glucose 120 mg/dL (65-115) H 05/01/24 09:38 Calculated Osmolality 279 mOsm/kg (285-295) L 05/01/24 09:38 Lactic Acid 1.1 mmol/L (0.5-2.2) 05/01/24 09:38 Calcium 8.2 mg/dL (8.5-10.5) L 05/01/24 09:38 Total Bilirubin 0.6 mg/dL (0.15-1.2) 05/01/24 09:38 AST 137 U/L (0-40) H 05/01/24 09:38 ALT 151 U/L (0-41) H 05/01/24 09:38 Alkaline Phosphatase 66 U/L (40-130) 05/01/24 09:38 Total Protein 7.2 g/dL (6.6-8.7) 05/01/24 09:38 Albumin 3.4 g/dL (3.5-5.2) L 05/01/24 09:38 Globulin 3.8 g/dL (1.3-4.6) 05/01/24 09:38 Lipase 28 U/L (13-60) 05/01/24 09:38 Urine Color Yellow (Yellow) 05/01/24 10:12 Urine Appearance Clear (CLEAR) 05/01/24 10:12 Urine pH 6.0 (5-7) 05/01/24 10:12 Ur Specific [place] 1.018 (1.005-1.030) 05/01/24 10:12 Urine Protein 2+ (Negative) A 05/01/24 10:12 Urine Glucose (UA) Negative (Normal) 05/01/24 10:12 Urine Ketones Negative (Negative) 05/01/24 10:12 Urine Blood 2+ (Negative) A 05/01/24 10:12 Urine Nitrate Negative (Negative) 05/01/24 10:12 Urine Bilirubin Negative (Negative) 05/01/24 10:12 Urine Urobilinogen 2.0 mg/dL (Negative) H 05/01/24 10:12 Ur Leukocyte Esterase Negative (Negative) 05/01/24 10:12 Urine RBC 11-20 /hpf (0-2) H 05/01/24 10:12 Urine WBC 0-5 /hpf (0-5) 05/01/24 10:12 Ur Squamous Epith Cells 0-5 /hpf (0-5) 05/01/24 10:12 Amorphous Sediment Trace /hpf 05/01/24 10:12 Urine Bacteria None seen /hpf (NONE) 05/01/24 10:12 Hyaline Casts 17.37 /lpf 05/01/24 10:12 Other Casts Broad granular 5-10 /lpf 05/01/24 10:12 Coronavirus 229E (PCR) Not detected (NOT DETECT) 05/01/24 09:40 SARS-CoV-2 (PCR) Not detected (NOT DETECT) 05/01/24 09:40 All radiology interpretation(s) finalized by discharge Discharge Plan Discharge Patient Disposition: Home Clinical Impression: Inguinal hernia, Hematuria, Nodular prostate, Pneumonia Condition: Stable Prescriptions: New hydrocodone-acetaminophen 5-325 mg tablet 1 tab PO Q6H PRN (Reason: pain) Qty: 15 0RF promethazine 25 mg tablet 25 mg PO Q6H PRN (Reason: nausea and vomiting) Qty: 20 0RF levofloxacin 750 mg tablet 750 mg PO DAILY 7 Days Qty: 7 0RF No Action multivitamin Tablet 1 tab PO DAILY Discharge Orders: Discharge ED (Routine); Ordered 05/01/24 Ordered By: Chase Bae Discharge Diet: Usual diet Discharge Activity: Limit activity as instructed Patient Instructions: Inguinal Hernia (ED), Opioid Safety, Pain Management Activity Restrictions/Additional Instructions: Thank you for choosing [facility] for your healthcare needs today. It is very important that you follow up as instructed or that you return to the Emergency Department should you have concerns or if your condition changes or worsens in any way. You were seen in the emergency room with complaint of right groin pain. CT showed a an inguinal hernia with a small amount of bowel in it which was reduced at the bedside in the emergency room. Suspect this is the source of your pain. We are referring you to the general surgeon this will need to be repaired surgically at some point in the future but is not emergent at this time. They can also address the left inguinal hernia and the umbilical hernia that were noted on exam today. You are also noted to have a small amount of blood in your urine and on the CT the prostate is nodular and enlarged. You should follow-up with your primary care doctor regarding this. We did discuss with the radiologist he did not find any evidence of kidney stones. There is also some elevation of your transaminases of your liver. There is no sign of obstruction of the gallbladder. Finally you were noted to have some infiltrate on the bottom portion of the lung on the CT of the abdomen chest x-ray shows there is a left lower lobe pneumonia you are given Levaquin for this. Coding Level of Care Code ED Vice President Media Relations for Tristan Gore
[2024-05-01 09:24] VITALS: BP 137/64; PULSE 74; O2SAT 96
[2024-05-01 09:44] LABS: Basophils % 0.3 %; Lymphocytes # 0.5 10^3/uL (0.8-4.8); Lymphocytes % 7.9 %; Mean Corpuscular Hemoglobin 30.8 pg (27-33); Mean Corpuscular Volume 90.7 fl (82-101); Monocytes # 0.3 10^3/uL (0.2-0.9); Monocytes % 5.4 %; Neutrophils # 4.87 10^3/uL (1.8-7.7); Neutrophils % 85.2 %; Nucleated Red Blood Cells % 0 %; Platelet Count 160 10^3/cmm (157-399); Red Blood Count 4.41 10^6/uL (3.85-5.65); Red Cell Distribution Width 12.8 % (12.1-15.1); White Blood Count 5.72 10^3/uL (3.29-11.43)
[2024-05-01] MEDS: sodium chloride 0.9% 1,000 ML 999 ML IV (09:45)
[2024-05-01 10:00] LABS: Alanine Aminotransferase 151 U/L (0-41); Albumin Level 3.4 g/dL (3.5-5.2); Alkaline Phosphatase 66 U/L (40-130); Anion Gap 16.3 (5-19); Aspartate Amino Transferase 137 U/L (0-40); Blood Urea Nitrogen 12 mg/dL (8-23); Calcium 8.2 mg/dL (8.5-10.5); Carbon Dioxide 22 mmol/L (22-29); Chloride 100 mmol/L (98-107); Creatinine Clr Calc Pharmacy 62.7462; Globulin 3.8 g/dL (1.3-4.6); Glucose 120 mg/dL (65-115); Lipase 28 U/L (13-60); Osmolality Calculated 279 mOsm/kg (285-295); Potassium 4.3 mmol/L (3.5-5.1); Sodium 134 mmol/L (136-145); Total Bilirubin 0.6 mg/dL (0.15-1.2); Total Protein 7.2 g/dL (6.6-8.7)
--- NOTE | 2024-05-01 10:15 | CT_ITS ---
WS: [id number] CT ABDOMEN PELVIS TECHNIQUE: Contrast-enhanced CT of the abdomen and pelvis with coronal and sagittal reformatted image s. CLINICAL INFORMATION: abd pain COMPARISON: 12/19/2020 DLP: 733.[address] scans at [facility] use at least one of these dose optimization techniques: automated e xposure control; mA and/or kV adjustment per patient size (includes targeted exams where dose is matc hed to clinical indication); or iterative reconstruction. FINDINGS: Appendix is not well visualized with no evidence of acute appendicitis. Suspected normal appendix in the RIGHT lower quadrant at the tip of the cecum. Diffuse fatty infiltration of the liver. Numerous small low-attenuation hepatic cysts similar to prev ious. Some of these are too small to characterize. Small esophageal hiatal hernia. Small bilateral pl eural effusions with bibasilar atelectasis. Normal portal vein and splenic vein. Adrenal glands are n ormal. Normal bilateral renal parenchymal enhancement. No hydronephrosis. Bilateral renal cysts. Norm al pancreatic parenchymal enhancement. Normal caliber abdominal aorta. Celiac and SMA are patent. Numerous small shotty periaortic and retroperitoneal lymph nodes. LEFT parasagittal fat-containing u mbilical hernia with herniated omental fat. Bilateral fat-containing inguinal hernias. RIGHT inguinal hernia contains loops of nonobstructed small bowel. Slight induration about the hernia sac. No evidence of high-grade obstruction. No free fluid. There are a few enlarged RIGHT inguinal l ymph nodes in this area with surrounding induration likely inflammatory. Recommend correlation for RI GHT inguinal pain and intermittent obstruction. Markedly enlarged heterogeneously enhancing prostate. No other acute findings. CT/CT abdomen pelvis w con* [id number] IMPRESSION: 1. Ileal small bowel loops extend into a [place] RIGHT inguinal hernia with a few air-fluid levels. No evidence of high-grade obstruction. Slight induratio n about the hernia sac. A few enlarged RIGHT inguinal lymph nodes in this area likely inflammatory. 2. Fat-containing LEFT inguinal hernia with slight herniation of colon along t he proximal mouth of the hernia with no evidence of entrapment. 3. Markedly enlarged heterogeneously enhancing nodular prostate measuring 4.2 x 6.1 cm suspicious for neoplasia/hyperplasia. Recommend correlation PSA. 4. Small bilateral pleural pleural effusions with bibasilar atelectasis. 5. Shotty normal-sized periaortic and retroperitoneal lymph nodes also may be inflammatory. 6. [place] fat-containing umbilical hernia with herniated omental fat. No he rniated bowel. 7. No evidence of acute appendicitis. Notified Chase aBe DO at 05/01/2024 11:11 AM.
[2024-05-01 10:30] LABS: Charge for UA Resulting for Rev
[2024-05-01] MEDS: iohexol 350 mg/mL 500 mL Btl (per mL) IV (10:39)
[2024-05-01 10:43] LABS: Bilirubin Urine Negative (Negative); Blood Urine 2+ (Negative); Glucose Urine UA Negative (Normal); Ketones Urine Negative (Negative); Leukocyte Esterase Urine Negative (Negative); Nitrate Urine Negative (Negative); Protein Urine 2+ (Negative); Specific Gravity, Urine 1.018 (1.005-1.030); Urine Appearance Clear (CLEAR); Urine Color Yellow (Yellow)
[2024-05-01 10:48] LABS: Bacteria Urine None Seen /hpf; Hyaline Casts Urine 17.37 /lpf; Squamous Epithelial Cell Urine 0-5 /hpf (0-5); WBC Urine 0-5 /hpf (0-5)
[2024-05-01 11:05] LABS: Amorphous Sediment Urine TRACE /hpf; UA Slide Review UA Slide Review Perf
[2024-05-01 11:06] LABS: Add Urine Culture? Yes; Other Casts Urine BROAD GRANULAR 5-10 /lpf
[2024-05-01 11:37] LABS: Lactic Sepsis W/Reflex 1.1 mmol/L (0.5-2.2)
[2024-05-01 12:06] LABS: Adenovirus Not Detected (NOT DETECT); Chlamydia Pneumoniae Not Detected (NOT DETECT); Coronavirus 229E,HKU1,NL63,OC4 Not Detected (NOT DETECT); Human Metapneumovirus Not Detected (NOT DETECT); Human Rhinovirus/Enterovirus Not Detected (NOT DETECT); Influenza A Not Detected (NOT DETECT); Influenza A H1 Not Detected (NOT DETECT); Influenza A H1-2009 Not Detected (NOT DETECT); Influenza A H3 Not Detected (NOT DETECT); Influenza B Not Detected (NOT DETECT); Mycoplasma Pneumoniae Not Detected (NOT DETECT); Parainfluenza Virus Type 1 Not Detected (NOT DETECT); Parainfluenza Virus Type 2 Not Detected (NOT DETECT); Parainfluenza Virus Type 3 Not Detected (NOT DETECT); Parainfluenza Virus Type 4 Not Detected (NOT DETECT); Respiratory Syncytial Virus A Not Detected (NOT DETECT); Respiratory Syncytial Virus B Not Detected (NOT DETECT); SARS-COV-2 Not Detected (NOT DETECT)
[2024-05-01 12:13] VITALS: BP 135/64; PULSE 74; O2SAT 94
--- NOTE | 2024-05-01 12:56 | XR_ITS ---
WS: [id number] Examination: XR chest 1V portable [id number] Reason for Exam: fever Date: May 01, 2024 Comparison: None. Findings: The heart is not grossly enlarged on this AP portable film. The mediastinum is not widened. There is no pulmonary edema or effusion Markings are increased in the bases particularly on the left suggesting infiltrate or atelectasis. XR/XR chest 1V portable [id number] Impression: Left basilar atelectasis or infiltrate is suspected.
[2024-05-01 13:04] VITALS: TEMP 38.3
[2024-05-01 13:53] VITALS: BP 135/64; PULSE 74; RESP 18; TEMP 38.3; O2SAT 94
== END 2024-05-01 13:40 | disposition home or self-care (01) ==
PROVIDERS: Emergency Provider Family Medicine
DX: K40.90 Unilateral inguinal hernia, without obstruction or gangrene, not specified as recurrent (principal); R31.9 Hematuria, unspecified; N40.2 Nodular prostate without lower urinary tract symptoms; J18.9 Pneumonia, unspecified organism; Z11.52 Encounter for screening for COVID-19; I10 Essential (primary) hypertension
CPT/HCPCS: 36415; 71045; 74177; 80053; 81003; 81015; 83605; 83690; 85025; 87040; 87086; 87635; 99285; J7030; Q9967